=== PATIENT | female | born 1970 | race Hispanic/Latino ===

== ENCOUNTER 2019-02-16 11:50 | Emergency (ER) | payer SELFPAY ==
[~2019-02-16] VITALS: Ht 154.9 cm; Wt 63.6 kg
[~2019-02-16 11:50] MED LIST: GLIPIZIDE5 M1 OR; GLIPIZIDE5 MG PO; LIPITOR20 M1 PO; LIPITOR20 MG PO; LISINOPRIL10 MG OR; LISINOPRIL5 MG PO; MAG CITRATE OR; METFORMIN1000 MG OR; METFORMIN500 MG PO; MIRALAX3350 N1 OR; MIRALAX3350 N1 PO; PRILOSEC20 MG/CAP PO; SIMVASTATIN20 MG OR; ZOFRAN4 M1 PO
[2019-02-16 15:15] VITALS: BP 158/67
== END 2019-02-16 15:15 | disposition home or self-care (01) | DRG 395 ==
LOC: ED 11:50
DX: T18.9XXA Foreign body of alimentary tract, part unspecified, initial encounter (principal); X58.XXXA Exposure to other specified factors, initial encounter; Y92.009 Unspecified place in unspecified non-institutional (private) residence as the place of occurrence of the external cause

== ENCOUNTER 2019-12-09 | Emergency (ER) | payer SELFPAY ==
[2019-12-09] MEDS ORDERED: LISINOPRIL20 MG PO (04:22)
[2019-12-09] MEDS ORDERED: NOVOLOG MIX SC ×2 (04:23→04:24)
[2019-12-09] MEDS ORDERED: CORTISPORIN OTI10 ML AD (04:46)
[2019-12-09] MEDS ORDERED: ULTRAM50 M1 PO (04:46)
== END 2019-12-09 05:18 | disposition home or self-care (01) | DRG 156 ==
DX: H60.91 Unspecified otitis externa, right ear (principal); E11.9 Type 2 diabetes mellitus without complications; I10 Essential (primary) hypertension; Z79.4 Long term (current) use of insulin

== ENCOUNTER 2019-12-22 15:06 | Emergency (ER) | payer SELFPAY ==
[~2019-12-22 15:06] MED LIST changes: +CORTISPORIN OTI10 ML AD; +LISINOPRIL20 MG PO; +NOVOLOG MIX SC; +ULTRAM50 M1 PO
[2019-12-22] MEDS ORDERED: LISINOP/HCTZ1 TA1 PO (15:46)
[2019-12-22] MEDS ORDERED: CIPRODEX1 ML OT (15:47)
[2019-12-22] MEDS ORDERED: CIPROFLOXACIN H0.3 % AD (15:52)
[2019-12-22] MEDS ORDERED: AMOXICILLIN875 MG PO (16:45)
[2019-12-22 16:50] VITALS: BP 161/82
== END 2019-12-22 16:50 | disposition home or self-care (01) | DRG 153 ==
LOC: ED 15:06
DX: H65.91 Unspecified nonsuppurative otitis media, right ear (principal); E11.9 Type 2 diabetes mellitus without complications; I10 Essential (primary) hypertension; Z79.4 Long term (current) use of insulin

== ENCOUNTER 2020-01-21 | Emergency (ER) | payer SELFPAY ==
[~2020-01-21] MED LIST changes: +AMOXICILLIN875 MG PO; +CIPRODEX1 ML OT; +CIPROFLOXACIN H0.3 % AD; +LISINOP/HCTZ1 TA1 PO
[2020-01-21] MEDS ORDERED: CORTISPORIN OTI10 M2 AD (01:45)
[2020-01-21] MEDS ORDERED: CIPROFLOXACN500 MG PO (01:45)
== END 2020-01-21 02:30 | disposition home or self-care (01) | DRG 156 ==
DX: H60.91 Unspecified otitis externa, right ear (principal); E11.9 Type 2 diabetes mellitus without complications; I10 Essential (primary) hypertension; Z79.4 Long term (current) use of insulin

== ENCOUNTER 2020-02-07 | Emergency (ER) | payer MEDICAID ==
[~2020-02-07] MED LIST changes: +CIPROFLOXACN500 MG PO; +CORTISPORIN OTI10 M2 AD
[2020-02-07 16:19] LABS: HEMATOCRIT 35.9 % (37.0-47.0); IMMATURE GRANULOCYTES 0.2 % (0.0-5.0); MEAN CORPUSCULAR HGB CONC 33.4 g/dL CAL (32.0-36.0); NEUT# 3.36 thou/uL (2.00-7.15); RED BLOOD COUNT 4.14 mill/uL (4.20-5.60); RED CELL DISTRI WIDTH 11.7 % (11.5-15.5)
[2020-02-07 16:24] LABS: MEAN CELL VOLUME 86.7 fL CALC (80.0-100.0)
[2020-02-07 16:43] LABS: ALBUMIN 4.1 g/dL (3.2-5.0); BILIRUBIN, TOTAL 0.4 mg/dL (0.0-1.4); BUN 11 mg/dL (7-17); BUN/CREATININE RATIO 29 (12-20 (CALC)); CHLORIDE 101 mmol/l (95-108); CREATININE 0.4 mg/dL (0.5-1.0); GFR > 60 ML/MIN (>=60 (CALC)); GFR FOR AFR.AMER. > 60 ML/MIN (>=60 (CALC)); POTASSIUM 3.7 mmol/l (3.5-5.1); SGOT/AST 23 u/l (14-36); SODIUM 135 mmol/l (137-146); TOTAL PROTEIN 7.9 g/dL (6.3-8.2)
[2020-02-07 16:44] LABS: ALKALINE PHOSPHATASE 130 u/l (38-126); ANION GAP 14 (6-22 (CALC)); CARBON DIOXIDE 24 mmol/l (22-30)
== END 2020-02-07 20:42 | disposition short-term general hospital (02) | DRG 153 ==
PROVIDERS: Family Medicine
DX: H70.91 Unspecified mastoiditis, right ear (principal); E11.9 Type 2 diabetes mellitus without complications; I10 Essential (primary) hypertension

== ENCOUNTER 2020-12-12 14:55 | Emergency (ER) | payer MEDICAID ==
[~2020-12-12] VITALS: Ht 154.9 cm; Wt 63.6 kg
[2020-12-12 15:45] LABS: HEMATOCRIT 35.6 % (37.0-47.0); HEMOGLOBIN 11.9 g/dl (12.0-16.0); IMMATURE GRANULOCYTES 0.1 % (0.0-5.0); MEAN CELL VOLUME 84.8 fL CALC (80.0-100.0); MEAN CORPUSCULAR HGB 28.3 pG CALC (26.0-32.0); MEAN CORPUSCULAR HGB CONC 33.4 g/dL CAL (32.0-36.0); NEUT# 4.02 thou/uL (2.00-7.15); RED BLOOD COUNT 4.2 mill/uL (4.20-5.60); RED CELL DISTRI WIDTH 12.6 % (11.5-15.5)
[2020-12-12 15:53] LABS: URINE BILIRUBIN - DIPSTICK NEGATIVE (NEGATIVE); URINE BLOOD DIPSTICK TRACE-INTACT (NEGATIVE); URINE CLARITY CLEAR; URINE COLOR YELLOW; URINE GLUCOSE - DIPSTICK >=1000 mg/dL (NEGATIVE); URINE KETONE NEGATIVE (NEGATIVE); URINE LEUK ESTERASE NEGATIVE (Negative); URINE NITRITE - DIPSTICK NEGATIVE (Negative); URINE PROTEIN - DIPSTICK NEGATIVE (NEG-TRACE); URINE SPECIFIC GRAVITY 1.015; URINE UROBILINOGEN - DIPSTICK 0.2 E.U./dL (0.2)
[2020-12-12] MEDS ORDERED: NOVOLIN N100 UNIT/1 ×2 (16:03→16:04)
[2020-12-12] MEDS ORDERED: CIPROFLOXACN500 MG PO (16:04)
[2020-12-12] MEDS ORDERED: NORVASC5 M1 PO (16:04)
[2020-12-12] MEDS ORDERED: LOSARTAN POTASS50 MG PO (16:05)
[2020-12-12 16:10] LABS: ALBUMIN 4.3 g/dL (3.2-5.0); ALKALINE PHOSPHATASE 116 u/l (38-126); ANION GAP 10 (6-22 (CALC)); BUN 15 mg/dL (7-17); BUN/CREATININE RATIO 34 (12-20 (CALC)); CARBON DIOXIDE 25 mmol/l (22-30); CHLORIDE 104 mmol/l (95-108); CREATININE 0.4 mg/dL (0.5-1.0); GFR > 60 ML/MIN (>=60 (CALC)); GFR FOR AFR.AMER. > 60 ML/MIN (>=60 (CALC)); POTASSIUM 3.5 mmol/l (3.5-5.1); SGOT/AST 34 u/l (14-36); SODIUM 136 mmol/l (137-146)
[2020-12-12 16:16] LABS: BILIRUBIN, TOTAL 0.6 mg/dL (0.0-1.4)
[2020-12-12 17:30] VITALS: BP 168/77
== END 2020-12-12 17:45 | disposition home or self-care (01) ==
LOC: ED 14:55
DX: R10.32 Left lower quadrant pain (principal); I10 Essential (primary) hypertension; E11.9 Type 2 diabetes mellitus without complications; E78.00 Pure hypercholesterolemia, unspecified; Z79.4 Long term (current) use of insulin